=== PATIENT | female | born 1975 | race Caucasian/White ===

== ENCOUNTER 2017-01-28 09:33 | Inpatient (IN) | payer BC ==
[~2017-01-28] VITALS: Ht 170.2 cm; Wt 61.0 kg
[~2017-01-28 09:33] MED LIST: DIL4 PO; MES60; SOM350 PO; TOP100 PO; XAN5 PO
[2017-01-28 10:48] LABS: CALCIUM 8.9 mg/dL (8.5-10.1); CARBON DIOXIDE 26.9 mmol/L (21-32); CHLORIDE SERUM 102 mmol/L (98-107); CREATININE SERUM 0.9 mg/dL (0.6-1.0); GFR1 > 60 mL/min; GLUCOSE SERUM 94 mg/dL (74-106); POTASSIUM SERUM 3.4 mmol/L (3.5-5.1); SODIUM SERUM 138 mmol/L (136-145)
[2017-01-28 10:52] LABS: ALBUMIN 4.1 g/dL (3.4-5.0); ALKALINE PHOSPHATASE 115 U/L (46-116); ALT/SGPT 114 U/L (14-59); AST/SGOT 152 U/L (15-37); BILIRUBIN TOTAL 0.7 mg/dL (0.20-1.00); LIPASE 119 IU/L (73-393); TOTAL PROTEIN, SERUM 7.6 g/dL (6.4-8.2)
[2017-01-28 10:57] LABS: BASOPHIL % 0.1 % (0-2); RED CELL DISTRIBUTION WIDTH 13.1 % (11.5-14.5)
[2017-01-28 10:59] LABS: PLATELET COUNT 117 x10^3mcL (130-400)
[2017-01-28 12:00] LABS: microscopic required? NO
[2017-01-28 12:10] LABS: UA SPECIFIC GRAVITY <=1.005 (1.005-1.035); urine erythrocyte NEGATIVE (NEGATIVE)
[2017-01-28] MEDS ORDERED: DILAUDID4 MG PO ×2 (13:23→13:24)
[2017-01-28] MEDS ORDERED: AMBIEN CR12.5 MG PO (13:25)
[2017-01-28] MEDS ORDERED: TOPAMAX200 M1 PO (13:25)
[2017-01-28] MEDS ORDERED: PLAQUENIL200 MG PO (13:29)
[2017-01-28] MEDS ORDERED: ZOFRAN ODT4 MG SL (13:29)
[2017-01-28] MEDS ORDERED: TIZANIDINE4 M1 PO (13:40)
[2017-01-28 14:29] VITALS: BP 125/77
[2017-01-28 14:29] LABS: T3 TOTAL 1.14 ng/mL
[2017-01-28 14:36] VITALS: Ht 170.2 cm; Wt 61.0 kg
[2017-01-28 15:29] LABS: CHOLESTEROL/HDL RATIO 2.3; MAGNESIUM 1.8 mg/dL (1.8-2.4); PHOSPHOROUS 3.5 mg/dL (2.5-4.9)
[2017-01-28 15:38] LABS: FREE THYROXINE INDEX 2.6 ug/dL (1.4-4.5); T4(THYROXINE) 8.4 ug/dL (4.7-13.3)
[2017-01-28 16:37] VITALS: BP 101/65
[2017-01-28 18:27] LABS: AMPHETAMINE QUAL UR NONE DETECTED (NEG <=1000)
[2017-01-28 21:29] VITALS: BP 109/63
[2017-01-28] MEDS ORDERED: MIDODRINE HYDR2.5 MG PO (22:15)
[2017-01-28] MEDS ORDERED: BEN20 PO (22:17)
[2017-01-28] MEDS ORDERED: ALPRAZOLAM XR1 MG PO (22:18)
[2017-01-28] MEDS ORDERED: HYOSCYAMINE PO (22:19)
[2017-01-29 04:34] VITALS: BP 115/70
[2017-01-29 06:02] VITALS: BP 105/71
[2017-01-29 06:34] LABS: BASOPHIL % 0.5 % (0-2); RED CELL DISTRIBUTION WIDTH 13.5 % (11.5-14.5)
[2017-01-29 06:39] LABS: PLATELET COUNT 99 x10^3mcL (130-400)
[2017-01-29 06:48] LABS: CALCIUM 8.3 mg/dL (8.5-10.1); CARBON DIOXIDE 25.7 mmol/L (21-32); CHLORIDE SERUM 110 mmol/L (98-107); CREATININE SERUM 0.8 mg/dL (0.6-1.0); GFR1 > 60 mL/min; GLUCOSE SERUM 80 mg/dL (74-106); MAGNESIUM 1.8 mg/dL (1.8-2.4); PHOSPHOROUS 3.2 mg/dL (2.5-4.9); POTASSIUM SERUM 3.9 mmol/L (3.5-5.1); SODIUM SERUM 143 mmol/L (136-145)
[2017-01-29 09:49] VITALS: BP 117/70
[2017-01-29 12:03] VITALS: BP 129/75
[2017-01-29 18:41] VITALS: BP 135/74
[2017-01-29 20:59] VITALS: BP 112/70
[2017-01-30 05:43] VITALS: BP 114/66
[2017-01-30 06:10] LABS: BASOPHIL % 0.4 % (0-2); RED CELL DISTRIBUTION WIDTH 13.7 % (11.5-14.5)
[2017-01-30 06:29] LABS: PLATELET COUNT 102 x10^3mcL (130-400)
[2017-01-30 06:57] LABS: POTASSIUM SERUM 3.7 mmol/L (3.5-5.1); SODIUM SERUM 142 mmol/L (136-145)
[2017-01-30 06:58] LABS: CALCIUM 8.4 mg/dL (8.5-10.1); CARBON DIOXIDE 26.9 mmol/L (21-32); CHLORIDE SERUM 109 mmol/L (98-107); CREATININE SERUM 0.8 mg/dL (0.6-1.0); GFR1 > 60 mL/min; GLUCOSE SERUM 101 mg/dL (74-106); PHOSPHOROUS 2.2 mg/dL (2.5-4.9)
[2017-01-30 06:59] LABS: MAGNESIUM 2.2 mg/dL (1.8-2.4)
[2017-01-30 09:26] VITALS: BP 100/66
[2017-01-30 12:00] VITALS: BP 100/66
== END 2017-01-30 15:25 | disposition home or self-care (01) | DRG 73 ==
LOC: ED 09:33 → DU 12:53 → MU 01-29 07:33
PROVIDERS: Emergency Medicine; Student in an Organized Health Care Education/Training Program; ADMIT Family Medicine
DX: G62.9 Polyneuropathy, unspecified (principal); G93.41 Metabolic encephalopathy; G90.3 Multi-system degeneration of the autonomic nervous system; K56.7 Ileus, unspecified; G89.29 Other chronic pain; F41.9 Anxiety disorder, unspecified; G43.909 Migraine, unspecified, not intractable, without status migrainosus; R74.0 Nonspecific elevation of levels of transaminase and lactic acid dehydrogenase [LDH]; D69.6 Thrombocytopenia, unspecified; M62.838 Other muscle spasm; E87.6 Hypokalemia; R73.03 Prediabetes; K56.41 Fecal impaction; M32.9 Systemic lupus erythematosus, unspecified; K76.0 Fatty (change of) liver, not elsewhere classified; D64.9 Anemia, unspecified; M54.5 Low back pain; E83.39 Other disorders of phosphorus metabolism; Z88.0 Allergy status to penicillin; Z88.5 Allergy status to narcotic agent; Z88.2 Allergy status to sulfonamides; Z90.49 Acquired absence of other specified parts of digestive tract; Z90.710 Acquired absence of both cervix and uterus; Z79.899 Other long term (current) drug therapy; Z80.9 Family history of malignant neoplasm, unspecified; Z81.8 Family history of other mental and behavioral disorders
CPT/HCPCS: 82962; 83880; 84439; 97530-GP; J1100; J1170; J1885; J2212; J2405; J2550; J7030; Q0092; Q9967

== ENCOUNTER 2019-11-09 20:25 | Emergency (ER) | payer BC, SELFPAY ==
[~2019-11-09] VITALS: Ht 170.2 cm; Wt 51.7 kg
[~2019-11-09 20:25] MED LIST changes: +ALPRAZOLAM XR1 MG PO; +AMBIEN CR12.5 MG PO; +BEN20 PO; +DILAUDID4 MG PO; +HYOSCYAMINE PO; +MIDODRINE HYDR2.5 MG PO; +PLAQUENIL200 MG PO; +TIZANIDINE4 M1 PO; +TOPAMAX200 M1 PO; +ZOFRAN ODT4 MG SL
[2019-11-09 20:27] VITALS: BP 110/68; Ht 170.2 cm; Wt 51.7 kg
== END 2019-11-09 23:09 | disposition left against medical advice (07) ==
LOC: ED 20:25
DX: Z53.21 Procedure and treatment not carried out due to patient leaving prior to being seen by health care provider (principal)